=== PATIENT | female | born 1965 | race Caucasian/White ===

== ENCOUNTER 2016-05-12 16:36 | Inpatient (IN) | payer BC ==
--- NOTE | 2016-05-12 19:01 | ED ---
Psych HPI - General Chief Complaint: Psychiatric Symptoms Stated Complaint: Mental Health Time Seen by Provider: 05/12/16 17:16 Source: patient Mode of arrival: ambulatory - History of Present Illness Initial Comments: Patient's a 50-year-old female presenting with suicidal ideation. Patient has been dealing with this over the past 4-5 years. Patient denies any medications for mood. She stopped seeing her counselor for several years. Patient states she had a good relationship with her counselor but just hasn't followed up. Patient states she tied a belt around her neck attempted to hang herself today. Patient denies homicidality or hallucinations. - Related Data Home Medications Medication Instructions Recorded Confirmed Acetaminophen Tab [Tylenol Tab] 1,000 mg PO Q6HR PRN 05/12/16 05/12/16 Allergies Allergy/AdvReac Type Severity Reaction Status Date / Time No Known Allergies Allergy Verified 05/12/16 18:05 Review of Systems ROS Statement: Those systems with pertinent positive or pertinent negative responses have been documented in the HPI. Constitutional: No fever and no chills. HENT: No congestion, no rhinorrhea and no sore throat. Eyes: No discharge and no redness. Respiratory: No cough and no shortness of breath. Cardiovascular: No chest pain and no palpitations. Gastrointestinal: No nausea, no vomiting, no abdominal pain and no diarrhea. Genitourinary: No dysuria and no hematuria. Musculoskeletal: No back pain and no arthralgias. Skin: No pallor and no rash. Neurological: No dizziness and No headaches. Psych: Suicidal. Not homicidal or hallucinating. ROS Other: All systems not noted in ROS Statement are negative. Past Medical History Past Medical History: No Reported History History of Any Multi-Drug Resistant Organisms: None Reported Past Surgical History: Orthopedic Surgery Additional Past Surgical History / Comment(s): hand Past Psychological History: No Psychological Hx Reported Smoking Status: Former smoker Past Alcohol Use History: None Reported Past Drug Use History: None Reported General Exam - General Exam Comments Initial Comments: Constitutional: Patient appears well-developed and well-nourished. Tearful. Head: Normocephalic and atraumatic. Eyes: Conjunctivae and EOM are normal. Right eye exhibits no discharge. Left eye exhibits no discharge. No scleral icterus. Neck: Normal range of motion. Neck supple. Cardiovascular: Normal rate and regular rhythm. No murmur heard. Pulmonary/Chest: Effort normal and breath sounds normal. No respiratory distress. No wheezes. Abdominal: Soft. No distension. There is no tenderness. There is no rebound and no guarding. Musculoskeletal: Normal range of motion. No edema or tenderness. Neurological: Patient alert and oriented to person, place, and time. Skin: Skin is warm and dry. Not diaphoretic. Nursing notes and vitals reviewed. Psych: Flattened affect, suicidal, not homicidal, not hallucinating Limitations: no limitations Course Vital Signs 05/12/16 16:52 Temperature 97.8 F Pulse Rate 125 H Respiratory 18 Rate Blood Pressure 140/70 O2 Sat by Pulse 100 Oximetry - Reevaluation(s) Reevaluation #1: 05/12/16 19:02 Medically cleared, negative BAL and EPS notified. Medical Decision Making - Medical Decision Making Patient's a 50-year-old female presenting with suicidal ideation and attempt. Patient tied a belt around her neck earlier but does not go through with it. Patient medically cleared and EPS consultation. Patient will sign in voluntarily into emergent psychiatric care. Patient was resting comfortably in bed. Course of stay stable. Denies pain. Discussed physical exam and diagnostic tests with patient. Questions answered and patient is agreeable to staying in the hospital. - Lab Data Lab Results 05/12/16 Range/Units 17:00 Urine Opiates Screen Not Detected (NotDetected) Ur Oxycodone Screen Not Detected (NotDetected) Urine Methadone Screen Not Detected (NotDetected) Ur Propoxyphene Screen Not Detected (NotDetected) Ur Barbiturates Screen Not Detected (NotDetected) U Tricyclic Antidepress Not Detected (NotDetected) Ur Phencyclidine Scrn Not Detected (NotDetected) Ur Amphetamines Screen Not Detected (NotDetected) U Methamphetamines Scrn Not Detected (NotDetected) U Benzodiazepines Scrn Not Detected (NotDetected) Urine Cocaine Screen Not Detected (NotDetected) U Marijuana (THC) Screen Not Detected (NotDetected) Disposition Clinical Impression: Mood disorder Disposition: TRANSFER TO PSYCH HOSP/UNIT Condition: Good Referrals: Aj De Guzman MD [Primary Care Provider] - 1-2 days
[2016-05-12] MEDS ORDERED: MAG HYDROX/AL HYDROX/SIMETH 30 ML CUP PO PRN (22:37)
[2016-05-12] MEDS ORDERED: ACETAMINOPHEN TAB 325 MG TAB PO PRN (22:37)
[2016-05-12] MEDS ORDERED: MAGNESIUM HYDROXIDE 2,400 MG/10 ML CUP PO PRN (22:37)
[2016-05-13 10:22] LABS: Basophils % (A) 1 %; CH 32.8; CHCM 34.8; Eosinophils # (A) 0.1 k/uL (0-0.7); Eosinophils % (A) 2 %; HCT 40.3 % (34.0-46.0); HDW 2.77; HGB 13.4 gm/dL (11.4-16.0); Luc # (Auto) 0.09; Luc % (Auto) 2; Lymphocytes # (A) 0.8 k/uL (1.0-4.8); Lymphocytes % (A) 20 %; MCH 31.4 pg (25.0-35.0); MCHC 33.2 g/dL (31.0-37.0); MCV 94.6 fL (80.0-100.0); Mean Platelet Volume 7.4; Monocytes # (A) 0.2 k/uL (0-1.0); Monocytes % (A) 6 %; Neutrophils # (A) 2.7 k/uL (1.3-7.7); Neutrophils % (A) 69 %; RBC 4.26 m/uL (3.80-5.40); RDW 12.1 % (11.5-15.5); WBC 3.9 k/uL (3.8-10.6); WBC (Perox) 4.22
[2016-05-13 10:49] LABS: ALT 27 U/L (9-52); AST 21 U/L (14-36); Alkaline Phosphatase 66 U/L (38-126); Anion Gap 14 mmol/L; Blood Urea Nitrogen 12 mg/dL (7-17); Calcium 9.8 mg/dL (8.4-10.2); Carbon Dioxide 28 mmol/L (22-30); Chloride 99 mmol/L (98-107); Glucose 137 mg/dL (74-99); Non-African American GFR(MDRD) >60 (>60 ml/min/1.73 sqM); Potassium 4.4 mmol/L (3.5-5.1); Sodium 141 mmol/L (137-145); Total Bilirubin 2.9 mg/dL (0.2-1.3)
[2016-05-13] MEDS: DOCUSATE 100 MG CAP PO SCH (11:24)
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
--- NOTE | 2016-05-13 17:58 | CONS ---
DATE OF CONSULTATION: 05/13/2016 REASON FOR CONSULTATION: Medical management requested Dr. Thapa. CONSULTATION: This is a pleasant 50-year-old patient of Dr. De Guzman, who presents with depression and suicidal ideation. Only chronic medical condition is constipation. The patient has a bowel movement every 3 to 4 days. Patient otherwise denies any other medical conditions. Depressed, suicidal is why she is here. REVIEW OF SYSTEMS: CONSTITUTIONAL: None. HEENT: None. RESPIRATORY: None. CARDIOVASCULAR: None. GASTROINTESTINAL: As above. GENITOURINARY: None. MUSCULOSKELETAL: None. DERMATOLOGIC: None. HEMATOLOGIC: None. LYMPHATIC: None. PSYCHIATRY: As above. PAST MEDICAL HISTORY: Constipation. PAST SURGICAL HISTORY: Right hand orthopedic surgery. SOCIAL HISTORY: . Does not smoke or drink alcohol. FAMILY HISTORY: Reviewed, noncontributory to the presentation. HOME MEDICATIONS: Tylenol. ALLERGIES: None. On examination, temperature 97.8, pulse 76, respirations 16, blood pressure 136/76, pulse ox 95% on room air. GENERAL APPEARANCE: Average build, sitting up, comfortable. EYES: Pupils equal. Conjunctivae normal. HEENT: Oral cavity normal. NECK: JVD not raised. Mass not palpable. RESPIRATORY: Effort normal. Lungs are clear. CARDIOVASCULAR: First and second sounds normal. No edema. ABDOMEN: Soft, nontender. Liver and spleen not palpable. LYMPHATIC: No lymph node palpable in neck or axillae. PSYCHIATRY: Alert and oriented x3. Mood and affect low-appearing. NEUROLOGICAL: Pupils equal. Cranial nerves grossly intact. Power and sensation grossly intact. INVESTIGATIONS: White count 3.9, hemoglobin 13.4. Potassium 4.4, bilirubin 2.9, glucose 137. ASSESSMENT: 1. Major depression, suicidal ideation, probably first episode. 2. Hypoglycemia, not a diabetic. 3. Hyperbilirubinemia, probably could be familial. 4. Chronic constipation. PLAN: The patient may take a laxative as required. Patient to eat diabetic, high-fiber diet. Follow with Dr. De Guzman upon discharge. Thank you, Dr. Thapa.
[2016-05-14 06:40] VITALS: BP 126/62; PULSE 85; RESP 18; TEMP 97.9
[2016-05-14] MEDS: DOCUSATE 100 MG CAP PO SCH (10:11)
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
== END 2016-05-14 13:58 | disposition home or self-care (01) | DRG 881 ==
LOC: EC 16:36 → 3MHU 21:03
PROVIDERS: ADMIT Psychiatry & Neurology Psychiatry; ATTEND Psychiatry & Neurology Psychiatry
DX: F32.9 Major depressive disorder, single episode, unspecified (principal); R45.851 Suicidal ideations; E16.2 Hypoglycemia, unspecified; F41.9 Anxiety disorder, unspecified; K59.09 Other constipation; E80.6 Other disorders of bilirubin metabolism; Z62.810 Personal history of physical and sexual abuse in childhood; Z87.891 Personal history of nicotine dependence
CPT/HCPCS: 80053; 80306; 82075; 84443; 85025; 99285